=== PATIENT | male | born 1970 | race Caucasian/White ===

== ENCOUNTER 2023-02-16 01:29 | Emergency (ER) | payer BC, SELFPAY ==
[2023-02-16 01:36] VITALS: BP 148/71; PULSE 72; RESP 18; TEMP 36.3; O2SAT 100; BMI 25.7
[2023-02-16 02:17] LABS: Prothrombin Time 11.1 SECONDS (10.1-12.7)
[2023-02-16 02:20] LABS: Add Manual Diff / Slide Review NO; Basophils Absolute Auto 100 /uL (0-100); Basophils Percent Auto 0.7 % (0-2); Eosinophils Absolute Auto 200 /uL (0-450); Eosinophils Percent Auto 3.2 % (2-4); Hematocrit 43.2 % (41-53); Hemoglobin 14.7 g/dL (13.5-17.5); Lymphocytes Absolute Auto 1800 /uL (1100-4500); Mean Corpuscular HGB Conc 34.1 % (30-36); Mean Corpuscular Hemoglobin 29.8 PG (26-34); Mean Corpuscular Volume 87.4 fL (80-100); Monocytes Absolute Auto 500 /uL (0-900); Monocytes Percent Auto 7.1 % (3-14); Neutrophils Absolute Auto 4800 /uL (1500-7000); Platelet Count 196 X10^3/uL (150-400); Red Blood Cell Count 4.94 X10^6/uL (4.5-5.9); Red Cell Distribution Width 14.2 % (11.6-14.8); White Blood Cell Count 7.3 X10^3/uL (4.5-11.0)
[2023-02-16 02:22] LABS: Alanine Aminotransferase 17 IU/L (<50); Albumin 3.7 g/dL (3.5-5.0); Albumin Globulin Ratio 1.3 (1.0-2.8); Alkaline Phosphatase 79 U/L (38-126); Aspartate Aminotransferase 23 IU/L (17-59); BUN Creatinine Ratio 11.9 (6-22); Bilirubin Total 0.4 mg/dL (0.2-1.3); Blood Urea Nitrogen 13 mg/dL (9-20); Calcium 8.9 mg/dL (8.4-10.2); Carbon Dioxide 27 mmol/L (22-32); Chloride 106 mmol/L (98-107); Creatine Kinase 97 U/L (55-170); Estimated Glomerular Filt Rate > 60 mL/min (>60); Globulin 2.8 g/dL (1.7-4.1); Glucose 89 mg/dL (70-100); HEMOLYSIS < 15 (0-50); Lipase 247 U/L (23-300); Potassium 3.9 mmol/L (3.4-5.1); Sodium 140 mmol/L (137-145); Total Protein 6.5 g/dL (6.3-8.2)
[2023-02-16 02:27] LABS: D Dimer 979 ng/ml (<500)
--- NOTE | 2023-02-16 02:32 | DI.CT.S_ITS ---
PROCEDURE: CT ANGIO CHEST PE PROTOCOL INDICATIONS: SOB, cough, prior PE TECHNIQUE: After the administration of intravenous contrast, 2 mm thick sections acquired from the pulmonary apices to the posterior costophrenic angles. 3-dimensional maximum intensity projection (MIP) coronal and sagittal reformats were then acquired through the thorax. For radiation dose reduction, the following was used: automated exposure control, adjustment of mA and/or kV according to patient size. COMPARISON: None. FINDINGS: Image quality: Excellent. Pulmonary arteries: Pulmonary arteries are normal in size, and demonstrate no intraluminal filling defects to suggest central pulmonary embolism. Lungs and pleura: Lungs are clear. Biapical bullous emphysematous change. Incidental note made of an azygos fissure on the right. On image 112/6 there is a 5.6 mm somewhat spiculated right upper lobe pulmonary nodule. On image 146/6 is a 6.6 mm right upper lobe pulmonary nodule. No pleural effusions or pneumothorax. Central and peripheral airways are patent. Mediastinum: Heart size is normal, without pericardial effusion. No mediastinal or hilar adenopathy. 4.2 cm setting aortic aneurysm. Esophagus is normal in caliber, with small hiatal hernia. Bones and chest wall: No suspicious bony lesions. Ribs and thoracic spine appear intact throughout. Thyroid gland is unremarkable. No axillary or supraclavicular adenopathy. Abdomen: Visualized upper abdominal solid organs appear normal in the early arterial phase of enhancement. IMPRESSION: 1. No acute pulmonary emboli. 2. 4.2 cm ascending aortic aneurysm. 3. No acute pulmonary process. 4. There are 2 nodules in the right upper lobe, measuring 5.6 mm and 6.6 mm respectively. The 5.6 mm nodule is a spiculated nodule. 5. Biapical bullous emphysema. 6. Small hiatal. Comment: Recommend follow-up CT in 6 months. If the nodules are stable at that time, would recommend consideration of yearly screening lung CT. Comment: Final report is concordant with preliminary interpretation provided by [facility]. Comment: Findings were discussed with Dr. Mendez on 02/16/2023 at 0727 hours. Fleischner Society criteria for SOLID lung nodule followup. Nodule size (mm)Low-risk patientHigh-risk patient<6 (single or multiple)No routine followup.Optional CT at 12 months. 6-8 (single or multiple)CT at 6-12 months, then optional CT at 18-24 mo.CT at 6-12 months, then CT at 18-24 months. >8 (single)CT at 3 months, PET-CT, or biopsy. Same as for low-risk pts. >8 (multiple)CT at 3-6 months, then optional CT at 18-24 mo.CT at 3-6 months, then CT at 18-24 months. Fleischner Society criteria for SUB-SOLID lung nodule followup. Solitary pure ground-glass nodules<6 mm (ground glass or part solid)No followup needed. 6 mm or larger (ground glass)CT at 6-12 months to confirm persistence, then CT every 2 years until 5 years.6 mm or larger (part solid)CT at 3-6 months to confirm persistence, then annual CT until 5 years if unchanged and solid component remains <6 mm. Multiple sub-solid nodules<6 mmCT at 3-6 months, then CT consider at 2 & 4 years for high risk patients. [address] at 3-6 months. Subsequent management based on most suspicious lesions. Recommendations do not apply to lung cancer screening, patients with immunosuppression, or patients with known primary cancer. Dictated by: Rajiv Garcia M.D. on 02/16/2023 at 7:25 Approved by: Rajiv Garcia M.D. on 02/16/2023 at 7:34
[2023-02-16 02:33] LABS: NT-proBNP (BNP-Adult 18+) 164 pg/mL (<125); Troponin I < 0.012 ng/mL (0.01-0.034)
[2023-02-16 02:38] LABS: Procalcitonin 0.06 ng/mL (<0.5)
[2023-02-16] MEDS: SODIUM CHLORIDE 0.9% 1,000 ML 1000 ML IV (03:13)
[2023-02-16 04:35] VITALS: BP 136/76; PULSE 72; RESP 17; O2SAT 98
[2023-02-16 05:00] VITALS: BP 155/78; PULSE 67; RESP 17; O2SAT 98
[2023-02-16 05:27] VITALS: BP 166/84; PULSE 69; RESP 20; O2SAT 99
[2023-02-16 05:30] VITALS: BP 159/85; PULSE 66; RESP 18; O2SAT 99
--- NOTE | 2023-02-16 06:15 | ED.GENADULT ---
HPI - General Adult <Maninder Jacques DO - Last Filed: 02/16/23 17:47> General Chief complaint: Upper Respiratory Symptoms Stated complaint: pneumonia Time Seen by Provider: 02/16/23 01:45 Source: patient Mode of arrival: Ambulatory History of Present Illness HPI narrative: 52-year-old male smoker with history of pulmonary emboli presents with in the chief complaint of a hacking cough for the past month or so. He denies any significant shortness of breath but does occasionally cough up sputum. He denies any blood or yellowish tinge to his sputum. He is had no fever or chills. He denies runny nose or sore throat. 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 He took himself off of anticoagulation a few months ago for reasons that are unclear. He denies any pain or swelling in lower extremities. He states that his sister has some unknown blood clotting disorder. He denies nausea, vomiting or diarrhea. Related Data Previous Rx's Medication Instructions Recorded doxycycline hyclate 100 mg tablet 100 mg PO BID #20 tabs 02/16/23 prednisone 20 mg tablet 20 mg PO DAILY #5 tabs 02/16/23 Allergies Allergy/AdvReac Type Severity Reaction Status Date / Time No Known Drug Allergies Allergy Verified 02/16/23 03:00 Review of Systems <DO Robles Smith Last Filed: 02/16/23 17:47> Review of Systems Narrative: GENERAL: Denies chills, fatigue, malaise, fever, sweats. HEENT: Denies sinus pain, ear pain, sore throat, difficulty swallowing, dizziness. RESPIRATORY: See HPI CARDIOVASCULAR: See HPI GASTROINTESTINAL: Denies nausea, vomiting, abdominal pain, diarrhea, constipation, melena. : Denies dysuria, frequency, incontinence, hematuria, urinary retention. MUSCULOSKELETAL: denies weakness, joint pain, or bony pain SKIN: Denies rash, skin lesions, or other NEUROLOGIC: Denies weakness, headache, numbness, change in speech, confusion, seizures, incoordination. PSYCHIATRIC: No concerning psychosocial issues. 12 point review of systems is negative except for those stated above Patient History <DO Robles Smith Last Filed: 02/16/23 17:47> Social History Smoking Status: Current every day smoker Smoking Status: Current every day smoker alcohol intake frequency: holidays/special occasions only Substance Use Type: does not use Exam <Maninder Jacques DO - Last Filed: 02/16/23 17:47> Narrative Exam Narrative: GENERAL: [52] year old patient appears stated age. Well-developed patient, in mild distress. HEAD: Atraumatic. Normocephalic. EYES: Pupils equal round and reactive. Extraocular motions intact. No scleral icterus. No injection or drainage. ENT: Nose without bleeding, purulent drainage. Throat without erythema, tonsillar hypertrophy or exudate. Airway patent. NECK: Trachea midline. Non tender CARDIOVASCULAR: Regular rate and rhythm without murmurs, gallops, or rubs. RESPIRATORY: Decreased lung sounds throughout with prolonged expiratory phase, no obvious rales or rhonchi GASTROINTESTINAL: Abdomen soft, non-tender, nondistended. EXTREMITIES: No edema or joint tenderness. BACK: Nontender without deformity or crepitance. No flank tenderness. NEURO: AOx3. SKIN: No rash or erythema of visible areas Initial Vital Signs Initial Vital Signs: Vital Signs Temperature 97.3 F L 02/16/23 01:36 Pulse Rate 72 02/16/23 01:36 Respiratory Rate 18 02/16/23 01:36 Blood Pressure 148/71 H 02/16/23 01:36 Pulse Oximetry 100 02/16/23 01:36 Oxygen Delivery Method Room Air 02/16/23 01:36 <Brenda Mercado DO - Last Filed: 02/16/23 13:56> Initial Vital Signs Initial Vital Signs: Vital Signs Temperature 97.3 F L 02/16/23 01:36 Pulse Rate 72 02/16/23 01:36 Respiratory Rate 18 02/16/23 01:36 Blood Pressure 148/71 H 02/16/23 01:36 Pulse Oximetry 100 02/16/23 01:36 Oxygen Delivery Method Room Air 02/16/23 01:36 Course <Maninder Jacques DO - Last Filed: 02/16/23 17:47> Orders Ordered: Discontinued Medications Sodium Chloride (Normal Saline 0.9%) 1,000 mls @ 1,000 mls/hr IV BOLUS ONE Stop: 02/16/23 02:44 Last Infusion: 02/16/23 04:23 Dose: 0 mls/hr Documented By: Admin: 02/16/23 03:13 Dose: 1,000 mls/hr Documented By: AP Vital Signs Vital signs: Vital Signs - 8 hr 02/16/23 07:00 Pulse Rate 64 Respiratory Rate 21 Blood Pressure 156/77 H Pulse Oximetry 96 Oxygen Delivery Method Room Air <Brenda Mercado DO - Last Filed: 02/16/23 13:56> Orders Ordered: Discontinued Medications Sodium Chloride (Normal Saline 0.9%) 1,000 mls @ 1,000 mls/hr IV BOLUS ONE Stop: 02/16/23 02:44 Last Infusion: 02/16/23 04:23 Dose: 0 mls/hr Documented By: Admin: 02/16/23 03:13 Dose: 1,000 mls/hr Documented By: AP Vital Signs Vital signs: Vital Signs - 8 hr 02/16/23 07:00 Pulse Rate 64 Respiratory Rate 21 Blood Pressure 156/77 H Pulse Oximetry 96 Oxygen Delivery Method Room Air Medical Decision Making <Maninder Jacques DO - Last Filed: 02/16/23 17:47> Lab Data 02/16/23 01:55 02/16/23 01:55 Labs: Lab Results 02/16/23 02/16/23 02/16/23 Range/Units 01:55 01:55 01:55 WBC 7.3 (4.5-11.0) X10^3/uL RBC 4.94 (4.5-5.9) X10^6/uL Hgb 14.7 (13.5-17.5) g/dL Hct 43.2 (41-53) % MCV 87.4 (80-100) fL MCH 29.8 (26-34) PG MCHC 34.1 (30-36) % RDW 14.2 (11.6-14.8) % Plt Count 196 (150-400) X10^3/uL Neut % (Auto) 65.0 (50-75) % Lymph % (Auto) 24.0 L (25-40) % Hancock % (Auto) 7.1 (3-14) % Eos % (Auto) 3.2 (2-4) % Baso % (Auto) 0.7 (0-2) % Neut # (Auto) 4800 (6350-8049) /uL Lymph # (Auto) 1800 (5663-2151) /uL Hancock # (Auto) 500 (0-900) /uL Eos # (Auto) 200 (0-450) /uL Baso # (Auto) 100 (0-100) /uL PT (10.1-12.7) SECONDS INR (0.9-1.3) D-Dimer 979 H (<500) ng/ml Sodium (137-145) mmol/L Potassium (3.4-5.1) mmol/L Chloride (98-107) mmol/L Carbon Dioxide (22-32) mmol/L BUN (9-20) mg/dL Creatinine (0.66-1.25) mg/dL Estimated GFR (>60) mL/min BUN/Creatinine Ratio (6-22) Glucose (70-100) mg/dL Lactate (0.7-2.1) mmol/L Calcium (8.4-10.2) mg/dL Magnesium (1.6-2.3) mg/dL Total Bilirubin (0.2-1.3) mg/dL AST (17-59) IU/L ALT (<50) IU/L Alkaline Phosphatase (38-126) U/L Total Creatine Kinase (55-170) U/L Troponin I (0.01-0.034) ng/mL NT-Pro-B Natriuret Pep (<125) pg/mL Total Protein (6.3-8.2) g/dL Albumin (3.5-5.0) g/dL Globulin (1.7-4.1) g/dL Albumin/Globulin Ratio (1.0-2.8) Lipase (23-300) U/L Procalcitonin 0.06 (<0.5) ng/mL 02/16/23 02/16/23 02/16/23 Range/Units 01:55 01:55 01:55 WBC (4.5-11.0) X10^3/uL RBC (4.5-5.9) X10^6/uL Hgb (13.5-17.5) g/dL Hct (41-53) % MCV (80-100) fL MCH (26-34) PG MCHC (30-36) % RDW (11.6-14.8) % Plt Count (150-400) X10^3/uL Neut % (Auto) (50-75) % Lymph % (Auto) (25-40) % Hancock % (Auto) (3-14) % Eos % (Auto) (2-4) % Baso % (Auto) (0-2) % Neut # (Auto) (2415-5407) /uL Lymph # (Auto) (1212-9318) /uL Hancock # (Auto) (0-900) /uL Eos # (Auto) (0-450) /uL Baso # (Auto) (0-100) /uL PT 11.1 (10.1-12.7) SECONDS INR 1.0 (0.9-1.3) D-Dimer (<500) ng/ml Sodium 140 (137-145) mmol/L Potassium 3.9 (3.4-5.1) mmol/L Chloride 106 (98-107) mmol/L Carbon Dioxide 27 (22-32) mmol/L BUN 13 (9-20) mg/dL Creatinine 1.09 (0.66-1.25) mg/dL Estimated GFR > 60 (>60) mL/min BUN/Creatinine Ratio 11.9 (6-22) Glucose 89 (70-100) mg/dL Lactate 1.0 (0.7-2.1) mmol/L Calcium 8.9 (8.4-10.2) mg/dL Magnesium 2.0 (1.6-2.3) mg/dL Total Bilirubin 0.4 (0.2-1.3) mg/dL AST 23 (17-59) IU/L ALT 17 (<50) IU/L Alkaline Phosphatase 79 (38-126) U/L Total Creatine Kinase 97 (55-170) U/L Troponin I < 0.012 (0.01-0.034) ng/mL NT-Pro-B Natriuret Pep 164 H (<125) pg/mL Total Protein 6.5 (6.3-8.2) g/dL Albumin 3.7 (3.5-5.0) g/dL Globulin 2.8 (1.7-4.1) g/dL Albumin/Globulin Ratio 1.3 (1.0-2.8) Lipase 247 (23-300) U/L Procalcitonin (<0.5) ng/mL MDM Narrative Additional Information: [52] year old patient presents with cough for a month Multiple etiologies for patient's symptoms considered including, but not limited to: [Pulmonary embolism versus pneumonia versus atypical pneumonia versus viral etiology versus other] Prior Charts reviewed in our EMR Primary Historian: patient Labs reviewed and interpreted by myself: No significant leukocytosis or left shift, no signs of anemia, D-dimer 979, chemistries including troponin unremarkable, very slight increase in BNP Imaging reviewed: CT angiogram demonstrates no pulmonary embolism, does suggest a 4.2 cm aneurysmal dilatation of his ascending aorta. Later in the day there is an over read by in-house radiology that demonstrates a pulmonary nodule of concerning size and appearance, this is related to the daytime physician who reached out to the patient at home and left a voicemail Patient's symptoms improved over duration of stay with above-stated therapies. Findings and discharge diagnosis discussed with patient/family followed by verbalization of understanding Return precautions discussed with patient/family whom verbalize understanding of diagnosis and plan 02/16/23 Dr. Mercdao-I received a call this morning from Radiology in regards to CT. Strongly encouraged patient to follow up concern for lung nodule with significant lung disease need very close follow-up possibility of early malignancy. I left patient a voicemail. <Brenda Mercado, - Last Filed: 02/16/23 13:56> Lab Data Labs: Lab Results 02/16/23 02/16/23 02/16/23 Range/Units 01:55 01:55 01:55 WBC 7.3 (4.5-11.0) X10^3/uL RBC 4.94 (4.5-5.9) X10^6/uL Hgb 14.7 (13.5-17.5) g/dL Hct 43.2 (41-53) % MCV 87.4 (80-100) fL MCH 29.8 (26-34) PG MCHC 34.1 (30-36) % RDW 14.2 (11.6-14.8) % Plt Count 196 (150-400) X10^3/uL Neut % (Auto) 65.0 (50-75) % Lymph % (Auto) 24.0 L (25-40) % Hancock % (Auto) 7.1 (3-14) % Eos % (Auto) 3.2 (2-4) % Baso % (Auto) 0.7 (0-2) % Neut # (Auto) 4800 (6628-3196) /uL Lymph # (Auto) 1800 (5203-7385) /uL Hancock # (Auto) 500 (0-900) /uL Eos # (Auto) 200 (0-450) /uL Baso # (Auto) 100 (0-100) /uL PT (10.1-12.7) SECONDS INR (0.9-1.3) D-Dimer 979 H (<500) ng/ml Sodium (137-145) mmol/L Potassium (3.4-5.1) mmol/L Chloride (98-107) mmol/L Carbon Dioxide (22-32) mmol/L BUN (9-20) mg/dL Creatinine (0.66-1.25) mg/dL Estimated GFR (>60) mL/min BUN/Creatinine Ratio (6-22) Glucose (70-100) mg/dL Lactate (0.7-2.1) mmol/L Calcium (8.4-10.2) mg/dL Magnesium (1.6-2.3) mg/dL Total Bilirubin (0.2-1.3) mg/dL AST (17-59) IU/L ALT (<50) IU/L Alkaline Phosphatase (38-126) U/L Total Creatine Kinase (55-170) U/L Troponin I (0.01-0.034) ng/mL NT-Pro-B Natriuret Pep (<125) pg/mL Total Protein (6.3-8.2) g/dL Albumin (3.5-5.0) g/dL Globulin (1.7-4.1) g/dL Albumin/Globulin Ratio (1.0-2.8) Lipase (23-300) U/L Procalcitonin 0.06 (<0.5) ng/mL 02/16/23 02/16/23 02/16/23 Range/Units 01:55 01:55 01:55 WBC (4.5-11.0) X10^3/uL RBC (4.5-5.9) X10^6/uL Hgb (13.5-17.5) g/dL Hct (41-53) % MCV (80-100) fL MCH (26-34) PG MCHC (30-36) % RDW (11.6-14.8) % Plt Count (150-400) X10^3/uL Neut % (Auto) (50-75) % Lymph % (Auto) (25-40) % Hancock % (Auto) (3-14) % Eos % (Auto) (2-4) % Baso % (Auto) (0-2) % Neut # (Auto) (7725-6630) /uL Lymph # (Auto) (4301-2738) /uL Hancock # (Auto) (0-900) /uL Eos # (Auto) (0-450) /uL Baso # (Auto) (0-100) /uL PT 11.1 (10.1-12.7) SECONDS INR 1.0 (0.9-1.3) D-Dimer (<500) ng/ml Sodium 140 (137-145) mmol/L Potassium 3.9 (3.4-5.1) mmol/L Chloride 106 (98-107) mmol/L Carbon Dioxide 27 (22-32) mmol/L BUN 13 (9-20) mg/dL Creatinine 1.09 (0.66-1.25) mg/dL Estimated GFR > 60 (>60) mL/min BUN/Creatinine Ratio 11.9 (6-22) Glucose 89 (70-100) mg/dL Lactate 1.0 (0.7-2.1) mmol/L Calcium 8.9 (8.4-10.2) mg/dL Magnesium 2.0 (1.6-2.3) mg/dL Total Bilirubin 0.4 (0.2-1.3) mg/dL AST 23 (17-59) IU/L ALT 17 (<50) IU/L Alkaline Phosphatase 79 (38-126) U/L Total Creatine Kinase 97 (55-170) U/L Troponin I < 0.012 (0.01-0.034) ng/mL NT-Pro-B Natriuret Pep 164 H (<125) pg/mL Total Protein 6.5 (6.3-8.2) g/dL Albumin 3.7 (3.5-5.0) g/dL Globulin 2.8 (1.7-4.1) g/dL Albumin/Globulin Ratio 1.3 (1.0-2.8) Lipase 247 (23-300) U/L Procalcitonin (<0.5) ng/mL MDM Narrative Additional Information: 02/16/23 Dr. Mercado-I received a call this morning from Radiology in regards to CT. Strongly encouraged patient to follow up concern for lung nodule with significant lung disease need very close follow-up possibility of early malignancy. I left patient a voicemail. Discharge Plan Departure Patient Disposition: Home Clinical Impression: Atypical pneumonia, Ascending aortic aneurysm Instructions: DI for Atypical Pneumonia, DI for Pulmonary Nodule Activity Restrictions/Additional Instructions: *You have been diagnosed with [atypical pneumonia and incidental finding of ascending aneurysm at 4.2 cm] *What to do: *Please continue to take your regular medications as directed. [x ] New medication prescriptions sent to your pharmacy: [[facility] ] [ ] New medication written as a paper prescription [ ] No new medications given *Please follow up with your primary care provider in 2-3 days, call for an appointment. Let them know you were seen in the Emergency Department and that we ask that you be seen in follow up. We will electronically transmit a record of today's note if your PCP is in our system *Please contact Dr. Santana at [facility] to arrange for follow up on your aneurysm. Please call the office on Saturday at [phone], let them know that you were seen in the emergency department and we would like you seen in follow-up *If you do not have a primary care provider please contact the [facility] Resource line at [phone]. They will ask some questions about your medical history and help get you set up with a doctor in the community. *Return to Emergency Department if you should have any new, worsening or concerning symptoms, such as [fever greater than 101 F, shaking chills, worsening pain, persistent vomiting or other bothersome symptoms] Prescriptions: New prednisone 20 mg tablet 20 mg PO DAILY Qty: 5 0RF Rx Instructions: administer with food or milk doxycycline hyclate 100 mg tablet 100 mg PO BID Qty: 20 0RF Stand Alone Forms: Patient Portal/API
[2023-02-16 07:00] VITALS: BP 156/77; PULSE 64; RESP 21; O2SAT 96
== END 2023-02-16 07:01 | disposition home or self-care (01) ==
PROVIDERS: Emergency Provider Emergency Medicine
DX: J18.9 Pneumonia, unspecified organism (principal); I71.21 Aneurysm of the ascending aorta, without rupture
CPT/HCPCS: 36415; 71275; 80053; 82550; 83605; 83690; 83735; 83880; 84145; 84484; 85025; 85379; 85610; 93005; 96360; 99284; Q9967